=== PATIENT | male | born 1960 | race Hispanic/Latino ===

== ENCOUNTER 2020-07-09 13:14 | Outpatient (CLI) | payer BC ==
[~2020-07-09 13:14] MED LIST: Magnevist 469MG/ML 20 ML VIAL ONE
--- NOTE | 2020-07-09 16:29 | MRI ---
EXAM: MRI of the pelvis/prostate without and with contrast HISTORY: Prostate cancer COMPARISON: None TECHNIQUE: Multiplanar multisequence MR images were obtained of the pelvis without and with IV contra st. Evaluation of this exam was performed with a [employer]sumobi workstation. FINDINGS: Central gland: Moderate hypertrophy of the central gland consistent with BPH. Prostate volume is alireza mated at 39 mL. No suspicious low T2 signal lesion is seen. Peripheral zone: There is slight limitation on the diffusion sequence and ADC map in the posterior ce ntral peripheral zone of the prostate secondary to air in the patient's rectum producing artifact. There is a 6 mm focus of low T2 signal in the right peripheral zone of the prostate. Evaluation for r estricted diffusion in this region cannot be performed. This area focally enhances on the early images in the peripheral zone. Seminal vesicles: Intact without abnormality Neurovascular bundles: Intact Pelvic lymph nodes: No pelvic adenopathy Other visualized intrapelvic structures: Scattered diverticula in the colon. Osseous structures: No marrow signal abnormality IMPRESSION: PI-RADS Category 2-low likelihood that a clinically significant cancer is present. Please note that t his exam is limited secondary to artifact from air in the patient's rectum. A follow-up of the right peripheral zone lesion should be performed in 6-12 months. Evacuation of the rectal air with a fleets enema one hour prior to the examination is recommended.
== END 2020-07-09 13:15 | disposition home or self-care (01) ==
LOC: TBSIIMAG 13:14
PROVIDERS: ATTEND Urology
DX: C61 Malignant neoplasm of prostate (principal)
CPT/HCPCS: 72197; 80053; 81001; 82565; 87086; A9579

== ENCOUNTER 2020-07-11 09:56 | Outpatient (CLI) | payer BC ==
--- NOTE | 2020-07-11 16:44 | CT ---
CT ABDOMEN AND PELVIS WITH AND WITHOUT IV CONTRAST: 07/11/20 Postcontrast images obtained in a portal venous phase and delayed venous phase. INDICATIONS: Prostate hypertrophy. Review of the noncontrast images reveals a 3 mm nonobstructing calculus in the upper collecting struc tures of the right kidney. No other renal calculus identified. There is no hydronephrosis. Ureters ar e normal caliber. Review of the postcontrast images shows symmetric enhancement of both kidneys. No e vidence of renal mass or cysts. Delayed sequence shows excretion into the collecting structures. The collecting structure appear unremarkable. The bladder is mildly distended. Mild prostatic hypertrophy with prostatic calcification. The liver, spleen and pancreas unremarkable. Adrenal glands normal. Small bowel loops appear normal. Appendix appears normal. There is a small nodular calcification in the right lower quadrant adjacent to the appendix which appears benign and presumably represents a calcified mesenteric lymph node. The re is diverticulosis of the sigmoid colon. The aorta is normal with mild atherosclerotic change. No evidence of adenopathy. The visualized vertebrae maintain height. Slight anterolisthesis at L5-S1 with mild degenerative villeda ges in the lumbar spine. More prominent bridging osteophytes in the lower thoracic spine. Pelvis unr emarkable. Images through the lung bases show calcified mediastinal and right hilar lymph nodes. IMPRESSION: 1. Small nonobstructing calculus in the upper collecting structures right kidney. 2. Mild prostatic hypertrophy with prostatic calcification. 3. No acute process. POS: AGW
== END 2020-07-11 09:57 | disposition home or self-care (01) ==
LOC: SCSCT 09:56
PROVIDERS: ATTEND Urology
DX: C61 Malignant neoplasm of prostate (principal); N40.0 Benign prostatic hyperplasia without lower urinary tract symptoms; N20.0 Calculus of kidney; N42.89 Other specified disorders of prostate
CPT/HCPCS: 74178

== ENCOUNTER 2020-10-30 13:32 | Outpatient (CLI) | payer BC ==
--- NOTE | 2020-10-30 15:25 | MRI ---
MR OF THE PELVIS WITH AND WITHOUT CONTRAST INDICATION: Prostate Cancer COMPARISON: Prior MR of the pelvis with and without contrast dated July 09, 2020 TECHNIQUE: Multiplanar, multisequence MR images were obtained of the pelvis with and without IV contr ast. 16 cc of MultiHance was utilized for the examination. The examination was reviewed on a separate [employer] 3-D workstation for multiplanar metric evaluation. FINDINGS: Prostate size: The prostate measured 4.7 x 3.9 x 4.5cm. 37.71 cc. Peripheral zone: The small focal area of T2 hyperintensity measuring approximately 6-7 mm within the lateral right mid gland is stable. No restricted diffusion is associated with this abnormality. No new suspicious T2 or diffusion-weighted signal abnormality is evident. Central zone: No suspicious signal abnormality or focal lesion. Neural vasculature: No evidence of neurovascular invasion Regional lymphadenopathy: None Dynamic contrast enhancement: Negative. Osseous structures: No suspicious osseous lesion is identified. Additional findings: None.. IMPRESSION: 1. PIRADS 2- Low (clinically significant cancer is unlikely to be present.)
== END 2020-10-30 13:33 | disposition home or self-care (01) ==
LOC: TBSIIMAG 13:32
PROVIDERS: ATTEND Urology
DX: C61 Malignant neoplasm of prostate (principal)
CPT/HCPCS: 72197

== ENCOUNTER 2021-01-01 09:30 | Inpatient (IN) | payer OTHER, SELFPAY ==
[2021-01-02 11:37] VITALS: BMI 27.8
[2021-01-06] MEDS ORDERED: Levofloxacin 500 mg/D5W 100 ml Premix Bag ONE (06:24)
[2021-01-06] MEDS ORDERED: ceFOXitin 1 GM VIAL ONE (06:24)
[2021-01-06] MEDS ORDERED: Sodium Chloride 0.9% 100 ML ONE (06:24)
[2021-01-06] MEDS ORDERED: Lidocaine 2% Jelly 5 ML TUBE ONE (06:37)
[2021-01-06] MEDS ORDERED: Fentanyl 100 MCG/2 ML VIAL ONE ×5 (06:37→17:49)
[2021-01-06] MEDS ORDERED: Midazolam HCl 2 mg/2 ml Vial ONE (06:55)
[2021-01-06] MEDS ORDERED: Rocuronium Bromide 10 MG/ML (10ML VIAL) ONE (07:35)
[2021-01-06] MEDS ORDERED: Glycopyrrolate 0.2 MG/ML 5 ML SYRINGE ONE (07:35)
[2021-01-06] MEDS ORDERED: PHENYLEPHRINE-NS 100 MCG/ML 10 ML SYRINGE ONE (07:35)
[2021-01-06] MEDS ORDERED: PROPOFOL 200 MG/20 ML VIAL ONE (07:35)
[2021-01-06] MEDS ORDERED: Lidocaine 1% PF 5 ML VIAL ONE (07:35)
[2021-01-06] MEDS ORDERED: Ondansetron PF 4 MG/2 ML Vial ONE (07:35)
[2021-01-06] MEDS ORDERED: Bupivacaine HCl 0.5%/Epinephrine 1:200,000/PF 30 ml Vial ONE (07:35)
[2021-01-06] MEDS ORDERED: B & O ONE (12:44)
[2021-01-06] MEDS ORDERED: Insulin Regular 300 UNITS/3 ML VIAL SC PRN (13:43)
[2021-01-06] MEDS ORDERED: Acetaminophen 500 MG TAB PO PRN (13:43)
[2021-01-06] MEDS ORDERED: Zolpidem Tartrate 5 MG TAB PO PRN (13:43)
[2021-01-06] MEDS ORDERED: HYDROcodone/Acetaminophen 10/325 mg Tablet PO PRN (13:43)
[2021-01-06] MEDS ORDERED: Morphine 2 MG/ML VIAL SLOW IVP PRN (13:43)
[2021-01-06] MEDS ORDERED: Morphine 4 MG/ML VIAL SLOW IVP PRN (13:43)
[2021-01-06] MEDS ORDERED: Dextrose 50% Abboject 50 ML SYRINGE SLOW IVP PRN (13:43)
[2021-01-06] MEDS ORDERED: Dextrose 5% in Water 1,000 ML IV PRN (13:43)
[2021-01-06] MEDS ORDERED: Mag-Al 1200 mg/1200 mg/30 ML UDCUP PO PRN (13:43)
[2021-01-06] MEDS ORDERED: diphenhydrAMINE 50 MG/ML VIAL IVP PRN (13:43)
[2021-01-06] MEDS ORDERED: hydrALAZINE 20 MG/ML VIAL SLOW IVP PRN ×2 (13:43)
[2021-01-06] MEDS ORDERED: Promethazine HCl 25 MG/ML VIAL IM PRN (13:52)
[2021-01-06] MEDS ORDERED: Promethazine HCl 25 MG/ML VIAL SLOW IVP PRN (13:52)
[2021-01-06] MEDS ORDERED: Ondansetron HCl/PF 4 MG/2 ML Vial IVP PRN (13:52)
[2021-01-06] MEDS ORDERED: Phenazopyridine HCl 100 MG TAB PO PRN (13:54)
[2021-01-06 14:19] LABS: #Monocytes 1.1 thou/uL (0.11-0.59); #Neutrophils 14.5 thou/uL (1.40-6.50); %Basophils 0.3 % (0.0-1.0); %Eosinophils 0.3 % (0.0-10.0); %Lymphocytes 5.8 % (21.0-51.0); %Monocytes 6.8 % (0.0-10.0); %Neutrophils 86.8 % (42.0-75.0); Hemoglobin 14.6 g/dL (14.0-18.0); Mean Corpuscular HGB CONC 33.5 g/dL (32.0-36.0); Mean Corpuscular Hemoglobin 30.8 pg (27.0-31.0); Mean Corpuscular Volume 91.9 fL (78.0-98.0); Platelet Count 222 thou/uL (130-400); Red Blood Cell (RBC) Count 4.75 mill/uL (4.70-6.10); White Blood Cell (WBC) Count 16.7 thou/uL (4.8-10.8)
[2021-01-06 14:41] LABS: Anion Gap 16 mmol/L (10-20); BUN (Urea Nitrogen) 11 mg/dL (8.4-25.7); Calc. Creatinine Clearance 55 mL/min (70-130); Calcium 8.1 mg/dL (7.8-10.44); Carbon Dioxide 19 mmol/L (23-31); Chloride 107 mmol/L (98-107); Glucose 148 mg/dL (80-115); Potassium 7.1 mmol/L (3.5-5.1); Sodium 135 mmol/L (136-145)
[2021-01-06] MEDS ORDERED: Labetalol HCl 100 MG/20 ML VIAL ONE (14:49)
[2021-01-06 15:39] LABS: Anion Gap 16 mmol/L (10-20); BUN (Urea Nitrogen) 10 mg/dL (8.4-25.7); Calc. Creatinine Clearance 62 mL/min (70-130); Calcium 8.2 mg/dL (7.8-10.44); Carbon Dioxide 19 mmol/L (23-31); Chloride 106 mmol/L (98-107); Glucose 149 mg/dL (80-115); Potassium 5.8 mmol/L (3.5-5.1); Sodium 135 mmol/L (136-145)
[2021-01-06] MEDS ORDERED: hydrALAZINE 20 MG/ML VIAL ONE (16:28)
[2021-01-06] MEDS: cefTRIAXone\\ROCEPHIN 1 GM in Sodium Chloride 0.9% 100 ML IVPB SCH (18:59)
[2021-01-06] MEDS: metFORMIN 500 MG TAB PO SCH (19:00)
[2021-01-06] MEDS: Atorvastatin Calcium 20 MG TAB PO SCH (20:37)
[2021-01-06] MEDS: Sodium Chloride 0.9% 1,000 ML IV SCH (20:38)
[2021-01-06] MEDS: Allopurinol 100 MG TAB PO SCH (20:38)
[2021-01-06] MEDS: Docusate 100 MG CAP PO SCH (20:38)
[2021-01-06] MEDS: Famotidine/PF 20 mg/2ml Vial SLOW IVP SCH (20:42)
[2021-01-07] MEDS: Sodium Chloride 0.9% 1,000 ML IV SCH ×3 (02:36→16:33)
[2021-01-07] MEDS: HYDROcodone/Acetaminophen 10/325 mg Tablet PO PRN (02:36)
[2021-01-07] MEDS: Oxybutynin 5 MG TAB PO PRN (04:33)
[2021-01-07] MEDS: traMADol HCl 50 MG TAB PO PRN ×3 (04:34→19:16)
[2021-01-07 05:51] LABS: #Lymphocytes 1.4 thou/uL (1.20-3.40); #Neutrophils 7.8 thou/uL (1.40-6.50); %Basophils 0.3 % (0.0-1.0); %Eosinophils 0.1 % (0.0-10.0); %Lymphocytes 13.5 % (21.0-51.0); %Monocytes 9.3 % (0.0-10.0); %Neutrophils 76.8 % (42.0-75.0); Hemoglobin 14.1 g/dL (14.0-18.0); Mean Corpuscular HGB CONC 33.4 g/dL (32.0-36.0); Mean Corpuscular Hemoglobin 30.9 pg (27.0-31.0); Mean Corpuscular Volume 92.5 fL (78.0-98.0); Mean Platelet Volume 7.5 fL (7.4-10.4); Platelet Count 205 thou/uL (130-400); RBC Distribution Width 12.9 % (11.5-14.5); Red Blood Cell (RBC) Count 4.56 mill/uL (4.70-6.10); White Blood Cell (WBC) Count 10.2 thou/uL (4.8-10.8)
[2021-01-07 06:10] LABS: Anion Gap 12 mmol/L (10-20); BUN (Urea Nitrogen) 10 mg/dL (8.4-25.7); Calc. Creatinine Clearance 74 mL/min (70-130); Calcium 8.2 mg/dL (7.8-10.44); Carbon Dioxide 22 mmol/L (23-31); Chloride 109 mmol/L (98-107); Glucose 117 mg/dL (80-115); Potassium 3.6 mmol/L (3.5-5.1); Sodium 139 mmol/L (136-145)
[2021-01-07] MEDS ORDERED: Bisacodyl 10 MG SUPP PR SCH (07:00)
[2021-01-07] MEDS: Ketorolac Tromethamine 30 MG/ML VIAL IVP SCH ×3 (08:38→19:15)
[2021-01-07] MEDS: metFORMIN 500 MG TAB PO SCH ×2 (08:38→16:33)
[2021-01-07] MEDS: Docusate 100 MG CAP PO SCH ×2 (08:39→19:16)
[2021-01-07] MEDS: Famotidine/PF 20 mg/2ml Vial SLOW IVP SCH ×2 (08:39→19:15)
[2021-01-07] MEDS: Lisinopril 10 MG TAB PO SCH (08:39)
[2021-01-07] MEDS: cefTRIAXone\\ROCEPHIN 1 GM in Sodium Chloride 0.9% 100 ML IVPB SCH (14:22)
[2021-01-07] MEDS: Atorvastatin Calcium 20 MG TAB PO SCH (19:16)
[2021-01-07] MEDS: Allopurinol 100 MG TAB PO SCH (19:16)
[2021-01-08] MEDS: Ketorolac Tromethamine 30 MG/ML VIAL IVP SCH ×4 (02:46→20:55)
[2021-01-08] MEDS: traMADol HCl 50 MG TAB PO PRN ×2 (03:44→13:09)
[2021-01-08 05:25] LABS: #Eosinphils 0.1 thou/uL (0.0-0.7); #Lymphocytes 1.1 thou/uL (1.20-3.40); #Monocytes 0.8 thou/uL (0.11-0.59); #Neutrophils 8.4 thou/uL (1.40-6.50); %Basophils 0.4 % (0.0-1.0); %Eosinophils 1.4 % (0.0-10.0); %Lymphocytes 10.3 % (21.0-51.0); %Monocytes 7.8 % (0.0-10.0); %Neutrophils 80.2 % (42.0-75.0); Hemoglobin 13.4 g/dL (14.0-18.0); Mean Corpuscular HGB CONC 32.9 g/dL (32.0-36.0); Mean Corpuscular Hemoglobin 30.7 pg (27.0-31.0); Mean Corpuscular Volume 93.3 fL (78.0-98.0); Mean Platelet Volume 7.7 fL (7.4-10.4); Platelet Count 192 thou/uL (130-400); RBC Distribution Width 12.9 % (11.5-14.5); Red Blood Cell (RBC) Count 4.35 mill/uL (4.70-6.10); White Blood Cell (WBC) Count 10.4 thou/uL (4.8-10.8)
[2021-01-08 05:46] LABS: Anion Gap 13 mmol/L (10-20); BUN (Urea Nitrogen) 15 mg/dL (8.4-25.7); Calc. Creatinine Clearance 77 mL/min (70-130); Calcium 8.5 mg/dL (7.8-10.44); Carbon Dioxide 20 mmol/L (23-31); Chloride 107 mmol/L (98-107); Glucose 129 mg/dL (80-115); Potassium 4.2 mmol/L (3.5-5.1); Sodium 136 mmol/L (136-145)
[2021-01-08] MEDS ORDERED: Bisacodyl 10 MG SUPP PR SCH ×2 (06:00)
[2021-01-08] MEDS: metFORMIN 500 MG TAB PO SCH ×2 (08:17→16:26)
[2021-01-08] MEDS: Famotidine/PF 20 mg/2ml Vial SLOW IVP SCH ×2 (08:18→20:55)
[2021-01-08] MEDS: Docusate 100 MG CAP PO SCH ×2 (08:18→20:55)
[2021-01-08] MEDS: Lisinopril 10 MG TAB PO SCH (08:18)
[2021-01-08] MEDS: Ondansetron PF 4 MG/2 ML Vial IVP PRN (14:09)
[2021-01-08] MEDS: HYDROcodone/Acetaminophen 10/325 mg Tablet PO PRN (20:56)
[2021-01-08] MEDS: Atorvastatin Calcium 20 MG TAB PO SCH (20:56)
[2021-01-08] MEDS: Allopurinol 100 MG TAB PO SCH (21:18)
[2021-01-08] MEDS ORDERED: Metoprolol Tartrate 50 MG TAB PO SCH (22:15)
[2021-01-08 22:51] LABS: #Eosinphils 0.1 thou/uL (0.0-0.7); #Lymphocytes 1.1 thou/uL (1.20-3.40); #Monocytes 0.8 thou/uL (0.11-0.59); #Neutrophils 7.4 thou/uL (1.40-6.50); %Basophils 0.3 % (0.0-1.0); %Eosinophils 1.5 % (0.0-10.0); %Lymphocytes 11.9 % (21.0-51.0); %Monocytes 8.1 % (0.0-10.0); %Neutrophils 78.2 % (42.0-75.0); Hemoglobin 14.1 g/dL (14.0-18.0); Mean Corpuscular HGB CONC 32.5 g/dL (32.0-36.0); Mean Corpuscular Hemoglobin 30.1 pg (27.0-31.0); Mean Corpuscular Volume 92.7 fL (78.0-98.0); Mean Platelet Volume 7.7 fL (7.4-10.4); Platelet Count 210 thou/uL (130-400); Red Blood Cell (RBC) Count 4.69 mill/uL (4.70-6.10); White Blood Cell (WBC) Count 9.5 thou/uL (4.8-10.8)
[2021-01-08 23:11] LABS: ALT (SGPT) 31 U/L (8-55); AST (SGOT) 34 U/L (5-34); Albumin 3.7 g/dL (3.4-4.8); Alkaline Phosphatase 67 U/L (40-110); Anion Gap 14 mmol/L (10-20); BUN (Urea Nitrogen) 15 mg/dL (8.4-25.7); Bilirubin, Total 0.6 mg/dL (0.2-1.2); Calc. Creatinine Clearance 84 mL/min (70-130); Calcium 8.9 mg/dL (7.8-10.44); Carbon Dioxide 19 mmol/L (23-31); Chloride 108 mmol/L (98-107); Globulin 3.3 g/dL (2.4-3.5); Glucose 106 mg/dL (80-115); Potassium 3.7 mmol/L (3.5-5.1); Sodium 137 mmol/L (136-145)
[2021-01-09] MEDS: Oxybutynin 5 MG TAB PO PRN (00:56)
[2021-01-09] MEDS: Ketorolac Tromethamine 30 MG/ML VIAL IVP SCH (02:42)
[2021-01-09 05:14] LABS: #Eosinphils 0.3 thou/uL (0.0-0.7); #Lymphocytes 1.7 thou/uL (1.20-3.40); #Monocytes 0.8 thou/uL (0.11-0.59); %Basophils 0.3 % (0.0-1.0); %Monocytes 8.3 % (0.0-10.0); %Neutrophils 71.4 % (42.0-75.0); Hemoglobin 13.2 g/dL (14.0-18.0); Mean Corpuscular Hemoglobin 29.7 pg (27.0-31.0); Mean Corpuscular Volume 92.9 fL (78.0-98.0); Mean Platelet Volume 7.6 fL (7.4-10.4); Platelet Count 209 thou/uL (130-400); RBC Distribution Width 12.8 % (11.5-14.5); Red Blood Cell (RBC) Count 4.45 mill/uL (4.70-6.10); White Blood Cell (WBC) Count 9.8 thou/uL (4.8-10.8)
[2021-01-09 05:34] LABS: Anion Gap 11 mmol/L (10-20); BUN (Urea Nitrogen) 18 mg/dL (8.4-25.7); Calc. Creatinine Clearance 80 mL/min (70-130); Calcium 8.8 mg/dL (7.8-10.44); Carbon Dioxide 22 mmol/L (23-31); Chloride 106 mmol/L (98-107); Glucose 73 mg/dL (80-115); Potassium 3.8 mmol/L (3.5-5.1); Sodium 135 mmol/L (136-145)
[2021-01-09] MEDS: metFORMIN 500 MG TAB PO SCH (08:54)
[2021-01-09] MEDS: traMADol HCl 50 MG TAB PO PRN (08:55)
[2021-01-09] MEDS: Famotidine/PF 20 mg/2ml Vial SLOW IVP SCH ×2 (08:55→09:27)
[2021-01-09] MEDS: Ondansetron PF 4 MG/2 ML Vial IVP PRN (08:55)
[2021-01-09] MEDS: Lisinopril 10 MG TAB PO SCH (08:56)
[2021-01-09] MEDS: Docusate 100 MG CAP PO SCH (08:57)
[2021-01-09] MEDS ORDERED: Ondansetron ODT 4 MG TAB PO PRN (09:52)
[2021-01-09 15:03] VITALS: BP 159/89; TEMP 98
== END 2021-01-09 15:50 | disposition home or self-care (01) | DRG 707 ==
LOC: SURG A 01-06 05:26
PROVIDERS: ADMIT Urology; ATTEND Urology
PROC: 0VT04ZZ Resection of Prostate, Percutaneous Endoscopic Approach (ICD-10-PCS; principal; 2021-01-06)
PROC: 0VB34ZZ Excision of Bilateral Seminal Vesicles, Percutaneous Endoscopic Approach (ICD-10-PCS; 2021-01-06)
PROC: 8E0W4CZ Robotic Assisted Procedure of Trunk Region, Percutaneous Endoscopic Approach (ICD-10-PCS; 2021-01-06)
PROC: 0VBQ4ZZ Excision of Bilateral Vas Deferens, Percutaneous Endoscopic Approach (ICD-10-PCS; 2021-01-06)
DX: C61 Malignant neoplasm of prostate (principal); R18.8 Other ascites; M25.50 Pain in unspecified joint; R00.0 Tachycardia, unspecified; I10 Essential (primary) hypertension; E11.8 Type 2 diabetes mellitus with unspecified complications; R81 Glycosuria; K40.90 Unilateral inguinal hernia, without obstruction or gangrene, not specified as recurrent; N52.9 Male erectile dysfunction, unspecified; R97.20 Elevated prostate specific antigen [PSA]; K42.9 Umbilical hernia without obstruction or gangrene; M25.511 Pain in right shoulder; M25.512 Pain in left shoulder; N20.0 Calculus of kidney
CPT/HCPCS: 36415; 36416; 80048; 82570; 84484; 85025; 86850; 86900; 86901; 88309; 93005; 93010; J0360; J0694; J0696; J1885; J1956; J2250; J2405; J2704; J3010; J3490; Q0162; S0028

== ENCOUNTER 2021-01-01 09:49 | Outpatient (CLI) | payer BC, OTHER ==
[2021-01-01 11:39] LABS: Hemoglobin 15.3 g/dL (13.5-17.5); Mean Corpuscular HGB CONC 32.5 g/dL (32.0-36.0); Mean Corpuscular Hemoglobin 29.4 pg (27.0-33.0); Mean Corpuscular Volume 90.4 fl (81.2-95.1); Mean Platelet Volume 9.9 fl (7.4-10.4); Platelet Count 243 10x3/uL (150-450); RBC Distribution Width 13.3 % (11.5-14.5); Red Blood Cell (RBC) Count 5.21 10x6/uL (4.32-5.72); White Blood Cell (WBC) Count 7.7 10x3/uL (3.5-10.5)
[2021-01-01 11:57] LABS: INR-International Normal Ratio 1.1; PTT 29.9 sec (22.0-33.0); Prothrombin Time 11.1 sec (9.5-12.1)
[2021-01-01 12:00] LABS: Anion Gap 15 mmol/L (10-20); BUN (Urea Nitrogen) 12 mg/dL (8.4-25.7); Calc. Creatinine Clearance 0 mL/min (70-130); Carbon Dioxide 25 mmol/L (23-31); Chloride 106 mmol/L (98-107); Potassium 4.6 mmol/L (3.5-5.1); Sodium 141 mmol/L (136-145)
[2021-01-01 12:01] LABS: ALT (SGPT) 38 U/L (8-55); AST (SGOT) 32 U/L (5-34); Albumin 4.6 g/dL (3.4-4.8); Alkaline Phosphatase 90 U/L (40-110); Bilirubin, Total 0.6 mg/dL (0.2-1.2); Calcium 9.5 mg/dL (7.8-10.44); Globulin 3.1 g/dL (2.4-3.5); Glucose 81 mg/dL (80-115); Protein, Total 7.7 g/dL (5.8-8.1)
[2021-01-01 12:49] LABS: Bilirubin Neg (Negative); Blood, Urine Negative (Negative); Clarity Clear (Clear); Glucose, Urine (Dipstick) Normal (Negative); Ketone, Urine Negative (Negative); Leukocyte 500 (Negative); Nitrite Negative (Negative); Protein, Urine (Dipstick) Negative (Neg-Trace); Urobilinogen Normal mg/dL (Less than 2)
[2021-01-01 13:15] LABS: Bacteria/HPF None Seen HPF (None Seen); RBC/HPF 0-3 HPF (0-3); Squamous Epithelial 0-3 HPF (0-3)
[2021-01-02 13:08] LABS: SARS-CoV-2 PCR by NAA Not Detected (NotDetected)
== END 2021-01-01 09:50 | disposition home or self-care (01) ==
LOC: LABBT 09:49
PROVIDERS: ATTEND Urology
DX: Z01.818 Encounter for other preprocedural examination (principal); C61 Malignant neoplasm of prostate; Z20.822 Contact with and (suspected) exposure to COVID-19
CPT/HCPCS: 71046; 80053; 81001; 85027; 85610; 85730; 87086; 87635; 93005; 93010; U0003; U0005

== ENCOUNTER 2021-01-21 08:28 | Outpatient (CLI) | payer OTHER, SELFPAY ==
[2021-01-21] MEDS ORDERED: Iopamidol-370 76% 500 ML 1 ML ONE (09:12)
== END 2021-01-21 08:29 | disposition home or self-care (01) ==
LOC: RAD 08:28
PROVIDERS: ATTEND Urology
DX: C61 Malignant neoplasm of prostate (principal)
CPT/HCPCS: 51600; 74430; Q9967

== ENCOUNTER 2022-02-09 08:17 | Outpatient (CLI) | payer OTHER | END 2022-02-09 08:18 | disposition home or self-care (01) | LOC: RAD 08:17 | PROVIDERS: ATTEND Urology | DX: N20.0 Calculus of kidney (principal) | CPT/HCPCS: 74018 ==

== ENCOUNTER 2024-04-26 07:35 | Outpatient (CLI) | payer MEDICARE | END 2024-04-26 07:36 | disposition home or self-care (01) | LOC: SCSRAD 07:35 | PROVIDERS: ATTEND Urology | DX: N20.0 Calculus of kidney (principal) | CPT/HCPCS: 36415; 74018; 80048; 81001; 83036; 84153; 87086 ==

== ENCOUNTER 2024-11-09 08:26 | Outpatient (CLI) | payer OTHER | END 2024-11-09 08:27 | disposition home or self-care (01) | LOC: BICMAMMO 08:26 | PROVIDERS: ATTEND Family Medicine | DX: M85.80 Other specified disorders of bone density and structure, unspecified site (principal) | CPT/HCPCS: 77080 ==